=== PATIENT | male | born 1995 | race Asian ===

== ENCOUNTER 2020-08-27 21:04 | Emergency (ER) | payer BC ==
[~2020-08-27] VITALS: Ht 170.2 cm; Wt 81.6 kg
[2020-08-27 21:17] VITALS: BP 104/58
--- NOTE | 2020-08-27 21:22 | NUR ---
AMBULATED TO LOBBY FROM TRIAGE
--- NOTE | 2020-08-27 22:03 | NUR ---
PT TAKEN TO BED 4
--- NOTE | 2020-08-27 22:05 | NUR ---
25 Y/O MALE PATIENT PRESENTS TO ED WITH PENILE PAIN X 4 DAYS . PT STATES "I THINK I FRACTURED MY PENIS, I HAVE A DISCOMFORT AND PENILE PAIN OF 5/10". DENIES N/V/D; SKIN IS PINK/WARM/DRY; AAOX4 WITH EVEN AND STEADY GAIT; LUNGS CLEAR BL; HR EVEN AND REGULAR; PT DENIES ANY FEVER, CP, SOB, OR COUGH AT THIS TIME; VSS; PATIENT POSITIONED FOR COMFORT; HOB ELEVATED; BEDRAILS UP X2; BED DOWN. ER MD MADE AWARE OF PT STATUS. NKA PMH: DENIES
--- NOTE | 2020-08-27 22:12 | NUR ---
Dr. Fischer examining patient.
[2020-08-27 22:57] LABS: APPEARANCE,URINE CLEAR (CLEAR); BILIRUBIN,URINE NEGATIVE (NEGATIVE); BLOOD, URINE NEGATIVE (NEGATIVE); COLOR,URINE YELLOW (YELLOW); LEUKOCYTE ESTERASE ,URINE NEGATIVE (NEGATIVE); NITRITE, URINE NEGATIVE (NEGATIVE); UGLUCOSE NEGATIVE (NEGATIVE)
[2020-08-27] MEDS ORDERED: NAPR-54 PO (23:30)
[2020-08-27 23:55] VITALS: BP 104/58
== END 2020-08-27 23:55 | disposition home or self-care (01) ==
LOC: MED 21:04
DX: N48.29 Other inflammatory disorders of penis (principal); X58.XXXA Exposure to other specified factors, initial encounter; Y93.89 Activity, other specified; Y92.89 Other specified places as the place of occurrence of the external cause; Y99.8 Other external cause status
CPT/HCPCS: 81003; 99283